=== PATIENT | female | born 1945 | race Caucasian/White ===

== ENCOUNTER 2018-12-10 18:29 | Emergency (ER) | payer OTHER ==
[2018-12-10] MEDS ORDERED: TETANUS & DIPHTHERIA TOX,ADULT 0.5 ML VIAL ONE (19:04)
[2018-12-10] MEDS ORDERED: WATER FOR INJ,STERILE 10 ML ONE (19:04)
[2018-12-10] MEDS ORDERED: CEFAZOLIN SODIUM 1 GM/VIAL ONE (19:04)
[2018-12-10 19:09] LABS: Absolute Lymphocytes (CBC) 3.1 K/uL (0.7-4.9); Basophils % 0.6 % (0-1.3); Hematocrit 37.7 % (36.0-45.0); Lymphocytes % 36.7 % (15.3-44.8); MPV 7.8 fL (7.6-11.3); RBC Red Blood Cell Count 4.04 M/uL (3.86-4.86)
[2018-12-10 19:30] LABS: ALT/SGPT 25 U/L (12-78); AST/SGOT 22 U/L (15-37); Albumin 3.6 g/dL (3.4-5.0); Alkaline Phosphatase 69 U/L (45-117); BUN Blood Urea Nitrogen 15 mg/dL (7-18); Bicarbonate 28 mmol/L (21-32); Bilirubin Direct < 0.1 mg/dL (0-0.2); Bilirubin Total 0.2 mg/dL (0.2-1.0); Glucose Level 109 mg/dL (74-106); Potassium 3.7 mmol/L (3.5-5.1); Protein, Total 6.8 g/dL (6.4-8.2); Sodium Level 142 mmol/L (136-145)
[2018-12-10 19:34] LABS: Protime INR 1.03
--- NOTE | 2018-12-10 20:22 | EDPHYS ---
Physician Documentation [facility] Name: Shahrzad Roque Age: 73 yrs Sex: Female : 1945 Arrival Date: 12/10/2018 Time: 18:32 Bed 19 Private MD: ED Physician Gallito Tucker HPI: 12/10 18:52 This 73 yrs old Female presents to ER via Ambulatory with complaints of Snake snw bite. 18:52 The patient was bitten on the dorsal aspect of middle phalanx of left ring finger, by a snw snake, weeding. Onset: The symptoms/episode began/occurred suddenly, just prior to arrival. Animal information: The snake had the markings of a copperhead snake. Secondary to the bite the patient reports a puncture wound, that is small. Associated signs and symptoms: Pertinent positives: minimal edema. Severity of symptoms: At their worst the symptoms were mild. The patient has not experienced similar symptoms in the past. The patient has not recently seen a physician. Historical: - Allergies: 18:40 Erythromycin; ss - PSHx: 18:40 Cholecystectomy; ss - Immunization history:: Adult Immunizations up to date. - Social history:: Smoking status: Patient/guardian denies using tobacco. - Ebola Screening: : Patient denies exposure to infectious person Patient denies travel to an Ebola-affected area in the 21 days before illness onset. ROS: 18:51 Constitutional: Negative for fever, chills, and weight loss, Eyes: Negative for injury, snw pain, redness, and discharge, ENT: Negative for injury, pain, and discharge, Neck: Negative for injury, pain, and swelling, Cardiovascular: Negative for chest pain, palpitations, and edema, Respiratory: Negative for shortness of breath, cough, wheezing, and pleuritic chest pain, Abdomen/GI: Negative for abdominal pain, nausea, vomiting, diarrhea, and constipation, Back: Negative for injury and pain, : Negative for injury, bleeding, discharge, and swelling, Skin: Negative for injury, rash, and discoloration, Neuro: Negative for headache, weakness, numbness, tingling, and seizure, Psych: Negative for depression, anxiety, suicide ideation, homicidal ideation, and hallucinations. 18:51 MS/extremity: Positive for snakebite. Exam: 18:51 Constitutional: This is a well developed, well nourished patient who is awake, alert, snw and in no acute distress. Head/Face: Normocephalic, atraumatic. Eyes: Pupils equal round and reactive to light, extra-ocular motions intact. Lids and lashes normal. Conjunctiva and sclera are non-icteric and not injected. Cornea within normal limits. Periorbital areas with no swelling, redness, or edema. ENT: Nares patent. No nasal discharge, no septal abnormalities noted. Tympanic membranes are normal and external auditory canals are clear. Oropharynx with no redness, swelling, or masses, exudates, or evidence of obstruction, uvula midline. Mucous membranes moist. Neck: Trachea midline, no thyromegaly or masses palpated, and no cervical lymphadenopathy. Supple, full range of motion without nuchal rigidity, or vertebral point tenderness. No Meningismus. Chest/axilla: Normal chest wall appearance and motion. Nontender with no deformity. No lesions are appreciated. Cardiovascular: Regular rate and rhythm with a normal S1 and S2. No gallops, murmurs, or rubs. Normal PMI, no JVD. No pulse deficits. Respiratory: Lungs have equal breath sounds bilaterally, clear to auscultation and percussion. No rales, rhonchi or wheezes noted. No increased work of breathing, no retractions or nasal flaring. Abdomen/GI: Soft, non-tender, with normal bowel sounds. No distension or tympany. No guarding or rebound. No evidence of tenderness throughout. Back: No spinal tenderness. No costovertebral tenderness. Full range of motion. MS/ Extremity: Pulses equal, no cyanosis. Neurovascular intact. Full, normal range of motion. Neuro: Awake and alert, GCS 15, oriented to person, place, time, and situation. Cranial nerves II-XII grossly intact. Motor strength 5/5 in all extremities. Sensory grossly intact. Cerebellar exam normal. Normal gait. Psych: Awake, alert, with orientation to person, place and time. Behavior, mood, and affect are within normal limits. 18:51 Skin: Appearance: normal except for affected area, injury, puncture(s), that are superficial, of the dorsal aspect of middle phalanx of left ring finger, one puncture wound from copperhead while weeding with gloves on. Vital Signs: 18:38 BP 133 / 64; Pulse 84; Resp 16; Temp 98.4(TE); Pulse Ox 99% on R/A; Weight 40.82 kg; ss Height 5 ft. 0 in. (152.40 cm); Pain 0/10; 19:30 BP 141 / 85; Pulse 89; Resp 19; Temp 98.5; Pulse Ox 98% ; Pain 0/10; rr5 20:30 BP 133 / 75; Pulse 80; Resp 18; Temp 97.8; Pulse Ox 99% ; rr5 18:38 Body Mass Index 17.58 (40.82 kg, 152.40 cm) ss MDM: 18:41 Patient medically screened. snw 20:22 Data reviewed: vital signs, nurses notes. Data interpreted: Pulse oximetry: on room air snw is 99 %. Interpretation: normal. Counseling: I had a detailed discussion with the patient and/or guardian regarding: the historical points, exam findings, and any diagnostic results supporting the discharge/admit diagnosis, lab results, radiology results, the need for outpatient follow up, to return to the emergency department if symptoms worsen or persist or if there are any questions or concerns that arise at home. Special discussion: I discussed in detail with the patient the higher chance of wound infection based on his presenting history. Based on the history and exam findings, there is no indication for further emergent testing or inpatient evaluation. I discussed with the patient/guardian the need to see the primary care provider for further evaluation of the symptoms. 12/10 18:50 Order name: CBC with Diff; Complete Time: 19:28 snw 12/10 18:50 Order name: Chem 7; Complete Time: 19:36 snw 12/10 18:50 Order name: PT-INR; Complete Time: 19:36 snw 12/10 18:50 Order name: Ptt, Activated; Complete Time: 19:36 snw 12/10 18:50 Order name: Fibrinogen; Complete Time: 19:36 snw 12/10 18:50 Order name: LFT's; Complete Time: 19:36 snw 12/10 18:50 Order name: Hand Left 2 View XRAY snw Administered Medications: 19:15 Drug: Tetanus-Diphtheria Toxoid Adult 0.5 ml {Set Up Operator: [employer]. Exp: rr5 07/21/2020. Lot #: [id number]. } Route: IM; Site: left deltoid; 20:15 Follow up: Response: No adverse reaction rr5 19:17 Drug: Ancef 1 grams Route: IM; Site: left gluteus; rr5 20:20 Follow up: Response: No adverse reaction rr5 Disposition: 12/11 06:46 Co-signature as Attending Physician, Gallito Tucker MD I agree with the assessment and prateek plan of care. Disposition: 12/10/18 20:21 Discharged to Home. Impression: Bitten by venomous snake - copperhead. - Condition is Stable. - Discharge Instructions: Snake Bite, Puncture Wound, VIS, Tetanus, Diphtheria (Td) - [facility]. - Prescriptions for Augmentin 875- 125 mg Oral Tablet - take 1 tablet by ORAL route every 12 hours for 10 days; 20 tablet. Mobic 7.5 mg Oral Tablet - take 1 tablet by ORAL route once daily take with food; 20 tablet. - Medication Reconciliation Form, Thank You Letter, Antibiotic Education, Prescription Opioid Use form. - Follow up: Private Physician; When: 2 - 3 days; Reason: Recheck today's complaints, Continuance of care, Re-evaluation by your physician. Follow up: Emergency Department; When: As needed; Reason: Worsening of condition. Signatures: Dispatcher [employer] EDMS Gallito Tucker MD MD cha Therrien, Shelly, MANAGER CREDIT COLLECTIONS-C MANAGER CREDIT COLLECTIONS-Aprilw Ángela Wilhelm RN RN Sujit Justice RN RN jl7 Eric Rogers RN RN rr5 Corrections: (The following items were deleted from the chart) 12/10 20:38 20:21 12/10/2018 20:21 Discharged to Home. Impression: Bitten by venomous snake - rr5 copperhead. Condition is Stable. Forms are Medication Reconciliation Form, Thank You Letter, Antibiotic Education, Prescription Opioid Use. Follow up: Private Physician; When: 2 - 3 days; Reason: Recheck today's complaints, Continuance of care, Re-evaluation by your physician. Follow up: Emergency Department; When: As needed; Reason: Worsening of condition. snw
--- NOTE | 2018-12-10 20:22 | ER ---
Nurse's Notes [facility] Name: Shahrzad Roque Age: 73 yrs Sex: Female : 1945 Arrival Date: 12/10/2018 Time: 18:32 Bed 19 Private MD: Diagnosis: Bitten by venomous snake - copperhead Presentation: 12/10 18:38 Presenting complaint: Patient states: Bit by a snake to L third finger at 1745. Patient ss reports she was wearing gloves when accident occurred. states that snake was a copperhead. Patient denies pain. Very minimal swelling noted to L third finger with one small puncture wound. Transition of care: patient was not received from another setting of care. Onset of symptoms was December 10, 2018. Risk Assessment: Do you want to hurt yourself or someone else? Patient reports no desire to harm self or others. Initial Sepsis Screen: Does the patient meet any 2 criteria? No. Patient's initial sepsis screen is negative. Does the patient have a suspected source of infection? No. Patient's initial sepsis screen is negative. Care prior to arrival: None. 18:38 Method Of Arrival: Ambulatory ss 18:38 Acuity: KELLIE 2 ss Triage Assessment: 19:00 Bite description: bite sustained to dorsal aspect of middle phalanx of left middle rr5 finger is superficial punctured wound by a snake, animal information: vaccination(s) is unknown. Historical: - Allergies: 18:40 Erythromycin; ss - PSHx: 18:40 Cholecystectomy; ss - Immunization history:: Adult Immunizations up to date. - Social history:: Smoking status: Patient/guardian denies using tobacco. - Ebola Screening: : Patient denies exposure to infectious person Patient denies travel to an Ebola-affected area in the 21 days before illness onset. Screenin:09 Abuse screen: Denies threats or abuse. Denies injuries from another. Nutritional rr5 screening: No deficits noted. Tuberculosis screening: No symptoms or risk factors identified. Fall Risk IV access (20 points). Total Cornejo Fall Scale indicates No Risk (0-24 pts). Assessment: 19:00 General: Appears in no apparent distress. comfortable, Behavior is calm, cooperative, rr5 appropriate for age. 19:00 Pain: Denies pain. Neuro: Level of Consciousness is awake, alert, obeys commands, rr5 Oriented to person, place, time, situation, Appropriate for age. Cardiovascular: Capillary refill < 3 seconds Patient's skin is warm and dry. Respiratory: Airway is patent Respiratory effort is even, unlabored, Respiratory pattern is regular, symmetrical. GI: No signs and/or symptoms were reported involving the gastrointestinal system. : No signs and/or symptoms were reported regarding the genitourinary system. EENT: No signs and/or symptoms were reported regarding the EENT system. Derm: Skin is intact, Skin is pink, warm \T\ dry. mild swelling and superficial punctured jagruti at left middle finger noted and marked. Musculoskeletal: Circulation, motion, and sensation intact. Capillary refill < 3 seconds. 20:00 Reassessment: left middle finger checked every 15 minutes and marked the time. no rr5 progression of swelling noted. 20:08 Reassessment: Patient appears in no apparent distress at this time. Patient and/or rr5 family updated on plan of care and expected duration. Pain level reassessed. Patient is alert, oriented x 3, equal unlabored respirations, skin warm/dry/pink. awaiting for review. no complaints made. 20:37 Reassessment: Patient appears in no apparent distress at this time. Patient is alert, rr5 oriented x 3, equal unlabored respirations, skin warm/dry/pink. discharge instruction given and explained without complaints made, verbalized understanding. Patient states feeling better. Patient states symptoms have improved. Vital Signs: 18:38 BP 133 / 64; Pulse 84; Resp 16; Temp 98.4(TE); Pulse Ox 99% on R/A; Weight 40.82 kg; Height 5 ft. 0 in. (152.40 cm); Pain 0/10; 19:30 BP 141 / 85; Pulse 89; Resp 19; Temp 98.5; Pulse Ox 98% ; Pain 0/10; rr5 20:30 BP 133 / 75; Pulse 80; Resp 18; Temp 97.8; Pulse Ox 99% ; rr5 18:38 Body Mass Index 17.58 (40.82 kg, 152.40 cm) ED Course: 18:32 Patient arrived in ED. mr 18:40 Triage completed. ss 18:40 Arm band placed on right wrist. ss 18:41 Char Khan FNP-C is PHCP. snw 18:41 Gallito Tucker MD is Attending Physician. snw 18:51 Sujit Conner, RN is Primary Nurse. jl7 18:55 Inserted saline lock: 22 gauge in right antecubital area, using aseptic technique. ss Blood collected. 19:00 Bed in low position. Call light in reach. Side rails up X2. analysis director on. Pulse rr5 ox on. NIBP on. 19:12 Hand Left 2 View XRAY In Process Unspecified. EDMS 20:37 No provider procedures requiring assistance completed. IV discontinued, intact, rr5 bleeding controlled, No redness/swelling at site. Pressure dressing applied. Administered Medications: 19:15 Drug: Tetanus-Diphtheria Toxoid Adult 0.5 ml {Tile Picker: [employer]. Exp: rr5 07/21/2020. Lot #: [id number]. } Route: IM; Site: left deltoid; 20:15 Follow up: Response: No adverse reaction rr5 19:17 Drug: Ancef 1 grams Route: IM; Site: left gluteus; rr5 20:20 Follow up: Response: No adverse reaction rr5 Outcome: 20:21 Discharge ordered by . snw 20:37 Discharged to home ambulatory, with family. rr5 20:37 Condition: stable 20:37 Discharge instructions given to patient, Instructed on discharge instructions, follow up and referral plans. medication usage, Demonstrated understanding of instructions, follow-up care, medications, Prescriptions given X 2. 20:38 Patient left the ED. rr5 Signatures: Dispatcher [employer] EDCO Char Khan, PROCESS TREATER-C PROCESS TREATER-Bailey Cory Ángela Chang, RN RN Sujit Justice, RN RN jl7 Eric Rogers, RN RN rr5
[2018-12-10 21:16] VITALS: BP 133/75; TEMP 97.8; O2SAT 99
--- NOTE | 2018-12-12 15:09 | RAD REPORT ---
EXAM DESCRIPTION: RAD - Hand Left 2 View - 12/11/2018 7:04 pm CLINICAL HISTORY: Left hand pain FINDINGS: No fracture or dislocation is seen. Soft tissue swelling third digit. No bony destructive lesion
== END 2018-12-10 20:38 | disposition home or self-care (01) ==
LOC: ER 18:29
DX: S61.235A Puncture wound without foreign body of left ring finger without damage to nail, initial encounter (principal); T63.091A Toxic effect of venom of other snake, accidental (unintentional), initial encounter; Y92.9 Unspecified place or not applicable; Z23 Encounter for immunization; Z88.3 Allergy status to other anti-infective agents
CPT/HCPCS: 85025; 80048; 36415; 85384; 85610; 80076; 85730; 73120; 90471; 90714; 96372; 99284; J0690

== ENCOUNTER 2020-04-28 09:38 | Emergency (ER) | payer OTHER ==
--- NOTE | 2020-04-28 10:56 | ER ---
Nurse's Notes [facility] Name: Shahrzad Roque Age: 74 yrs Sex: Female : 1945 Arrival Date: 04/28/2020 Time: 09:39 Bed 17 Private MD: Fede Alexander V Diagnosis: Urinary tract infection, site not specified;Dysuria Presentation: 04/28 09:52 Chief complaint: Patient states: burning with urination and hematuria since yesterday. aa5 09:52 Coronavirus screen: Client denies travel out of the [place] in the last 14 days. At this aa5 time, the client does not indicate any symptoms associated with coronavirus-19. Ebola Screen: Patient negative for fever greater than or equal to 101.5 degrees Fahrenheit, and additional compatible Ebola Virus Disease symptoms. Initial Sepsis Screen: Does the patient meet any 2 criteria? No. Patient's initial sepsis screen is negative. Does the patient have a suspected source of infection? No. Patient's initial sepsis screen is negative. Risk Assessment: Do you want to hurt yourself or someone else? Patient reports no desire to harm self or others. Onset of symptoms was April 27, 2020. 09:52 Method Of Arrival: Ambulatory aa5 09:52 Acuity: KELLIE 4 aa5 Triage Assessment: 11:00 General: Appears in no apparent distress. Behavior is calm, cooperative. Pain: Denies iw pain. : Reports burning with urination. Derm: No signs and/or symptoms reported regarding the dermatologic system. Skin is intact, is healthy with good turgor. Historical: - Allergies: 15:51 Erythromycin; iw - Immunization history:: Adult Immunizations unknown. - Social history:: Smoking status: unknown. Screenin:00 Abuse screen: Denies threats or abuse. Denies injuries from another. Nutritional iw screening: No deficits noted. Tuberculosis screening: No symptoms or risk factors identified. Fall Risk None identified. Assessment: 11:30 Reassessment: Patient is alert, oriented x 3, equal unlabored respirations, skin aa5 warm/dry/pink. Vital Signs: 09:52 BP 106 / 47; Pulse 82; Resp 16 S; Temp 98.5(O); Pulse Ox 99% on R/A; Weight 40.82 kg aa5 (R); Height 5 ft. 0 in. (152.40 cm) (R); Pain 0/10; 09:52 Body Mass Index 17.58 (40.82 kg, 152.40 cm) aa5 ED Course: 09:39 Patient arrived in ED. ag5 09:39 Fede Alexander MD is Private Physician. ag5 09:44 Mina Chaidez MD is Attending Physician. kdr 09:52 Arm band placed on Patient placed in an exam room, on a stretcher. aa5 10:05 Triage completed. aa5 10:34 Janis Ames, RN is Primary Nurse. iw 10:55 Fede Alexander MD is Referral Physician. kdr 11:30 No provider procedures requiring assistance completed. Patient did not have IV access iw during this emergency room visit. Administered Medications: 11:31 Drug: Bactrim (160 mg-800 mg (DS) 1 tablet Route: PO; aa5 11:31 Follow up: Response: Medication administered at discharge. aa5 11:31 Not Given (Pt reports she took 2 AZOs this morning. ): Pyridium 200 mg PO once aa5 Outcome: 10:56 Discharge ordered by . kdr 11:30 Discharged to home ambulatory. aa5 11:30 Condition: good 11:30 Discharge instructions given to patient, Instructed on discharge instructions, follow up and referral plans. medication usage, Demonstrated understanding of instructions, follow-up care, medications, Prescriptions given X 2. 11:31 Patient left the ED. aa5 Signatures: Mina Chaidez MD MD kdr Janis Ames RN RN Anai Sinclair RN RN aa5 Lsia Roberts ag5
--- NOTE | 2020-04-28 10:56 | EDPHYS ---
Physician Documentation [facility] Name: Shahrzad Roque Age: 74 yrs Sex: Female : 1945 Arrival Date: 04/28/2020 Time: 09:39 Bed 17 Private MD: Fede Alexander V ED Physician Mina Chaidez HPI: 04/28 11:04 This 74 yrs old Female presents to ER via Ambulatory with complaints of UTI. kdr 11:04 The patient presents with urinary symptoms, dysuria, frequency, hematuria, urgency. kdr Onset: The symptoms/episode began/occurred suddenly, at an unknown time. Modifying factors: The symptoms are alleviated by nothing, the symptoms are aggravated by urinating. Associated signs and symptoms: The patient has no apparent associated signs or symptoms. Severity of symptoms: At their worst the symptoms were mild, in the emergency department the symptoms are unchanged. The patient is not sexually active. The patient has experienced similar episodes in the past, a few times, with the last episode occurring 2 year(s) ago. The patient has not recently seen a physician. Historical: - Allergies: 15:51 Erythromycin; iw - Immunization history:: Adult Immunizations unknown. - Social history:: Smoking status: unknown. ROS: 11:04 Constitutional: Negative for fever, chills, and weight loss, Eyes: Negative for injury, kdr pain, redness, and discharge, Neck: Negative for injury, pain, and swelling, Cardiovascular: Negative for chest pain, palpitations, and edema, Respiratory: Negative for shortness of breath, cough, wheezing, and pleuritic chest pain, Abdomen/GI: Negative for abdominal pain, nausea, vomiting, diarrhea, and constipation, Back: Negative for injury and pain, MS/Extremity: Negative for injury and deformity, Skin: Negative for injury, rash, and discoloration, Neuro: Negative for headache, weakness, numbness, tingling, and seizure activity. Psych: Negative for depression, anxiety, suicide ideation, homicidal ideation, and hallucinations, Allergy/Immunology: Negative for hives, rash, and allergies, Endocrine: Negative for neck swelling, polydipsia, polyuria, polyphagia, and marked weight changes, Hematologic/Lymphatic: Negative for swollen nodes, abnormal bleeding, and unusual bruising. Exam: 11:04 Constitutional: This is a well developed, well nourished patient who is awake, alert, kdr and in no acute distress. Head/Face: Normocephalic, atraumatic. Eyes: Pupils equal round and reactive to light, extra-ocular motions intact. Lids and lashes normal. Conjunctiva and sclera are non-icteric and not injected. Cornea within normal limits. Periorbital areas with no swelling, redness, or edema. Neck: Trachea midline, no thyromegaly or masses palpated, and no cervical lymphadenopathy. Supple, full range of motion without nuchal rigidity, or vertebral point tenderness. No Meningismus. Chest/axilla: Normal chest wall appearance and motion. Nontender with no deformity. No lesions are appreciated. Cardiovascular: Regular rate and rhythm with a normal S1 and S2. No gallops, murmurs, or rubs. Normal PMI, no JVD. No pulse deficits. Respiratory: Lungs have equal breath sounds bilaterally, clear to auscultation and percussion. No rales, rhonchi or wheezes noted. No increased work of breathing, no retractions or nasal flaring. Abdomen/GI: Soft, non-tender, with normal bowel sounds. No distension or tympany. No guarding or rebound. No evidence of tenderness throughout. Back: No spinal tenderness. No costovertebral tenderness. Full range of motion. Skin: Warm, dry with normal turgor. Normal color with no rashes, no lesions, and no evidence of cellulitis. MS/ Extremity: Pulses equal, no cyanosis. Neurovascular intact. Full, normal range of motion. Neuro: Awake and alert, GCS 15, oriented to person, place, time, and situation. Cranial nerves II-XII grossly intact. Motor strength 5/5 in all extremities. Sensory grossly intact. Cerebellar exam normal. Normal gait. Psych: Awake, alert, with orientation to person, place and time. Behavior, mood, and affect are within normal limits. Vital Signs: 09:52 BP 106 / 47; Pulse 82; Resp 16 S; Temp 98.5(O); Pulse Ox 99% on R/A; Weight 40.82 kg aa5 (R); Height 5 ft. 0 in. (152.40 cm) (R); Pain 0/10; 09:52 Body Mass Index 17.58 (40.82 kg, 152.40 cm) aa5 MDM: 10:56 Patient medically screened. kdr 11:04 Data reviewed: vital signs, nurses notes. Counseling: I had a detailed discussion with kdr the patient and/or guardian regarding: the historical points, exam findings, and any diagnostic results supporting the discharge/admit diagnosis, lab results, the need for outpatient follow up. 04/28 10:55 Order name: Urine Dipstick--Ancillary (enter results) eb 04/28 09:55 Order name: Urine Dipstick-Ancillary (obtain specimen); Complete Time: 10:54 kdr Administered Medications: 11:31 Drug: Bactrim (160 mg-800 mg (DS) 1 tablet Route: PO; aa5 11:31 Follow up: Response: Medication administered at discharge. aa5 11:31 Not Given (Pt reports she took 2 AZOs this morning. ): Pyridium 200 mg PO once aa5 Disposition: 04/28/20 10:56 Discharged to Home. Impression: Urinary tract infection, site not specified, Dysuria. - Condition is Stable. - Discharge Instructions: Dysuria, Urinary Tract Infection, Adult, [id number]. - Prescriptions for Pyridium 200 mg Oral Tablet - take 1 tablet by ORAL route every 8 hours for 3 days; 9 tablet. Bactrim DS 800- 160 mg Oral Tablet - take 1 tablet by ORAL route every 12 hours for 7 days; 14 tablet. - Medication Reconciliation Form, Thank You Letter, Antibiotic Education form. - Follow up: Fede Alexander MD; When: 2 - 3 days; Reason: If symptoms return, Further diagnostic work-up, Recheck today's complaints, Continuance of care, Re-evaluation by your physician. - Problem is new. - Symptoms have improved. Signatures: Dispatcher [employer] EDMO Mina Chaidez MD MD kdr Janis Ames RN RN iw Anai Sinclair, FOZIA RN aa5 Corrections: (The following items were deleted from the chart) 11:31 10:56 04/28/2020 10:56 Discharged to Home. Impression: Urinary tract infection, site aa5 not specified; Dysuria. Condition is Stable. Forms are Medication Reconciliation Form, Thank You Letter, Antibiotic Education, Prescription Opioid Use. Follow up: Fede Alexander; When: 2 - 3 days; Reason: If symptoms return, Further diagnostic work-up, Recheck today's complaints, Continuance of care, Re-evaluation by your physician. Problem is new. Symptoms have improved. kdr
[2020-04-28 11:02] LABS: Urine Blood 3+ (NEG); Urine Glucose NEGATIVE (NEG); Urine Protein TRACE (NEG)
[2020-04-28] MEDS ORDERED: PHENAZOPYRIDINE 100MG TAB PO ONE (11:29)
[2020-04-28] MEDS ORDERED: SMZ./TMP. 800/160 MG TABLET ONE (11:29)
[2020-04-28 11:36] VITALS: BP 106/47; TEMP 98.5; O2SAT 99
== END 2020-04-28 11:31 | disposition home or self-care (01) ==
LOC: ER 09:38
DX: N39.0 Urinary tract infection, site not specified (principal); Z88.3 Allergy status to other anti-infective agents
CPT/HCPCS: 81003; 99283

== ENCOUNTER 2020-05-13 20:24 | Observation (INO) | payer OTHER ==
[2020-05-13] MEDS ORDERED: ACETAMINOPHEN 325 MG TABLET ONE (21:35)
[2020-05-13 22:27] LABS: Absolute Lymphocytes (CBC) 1.6 K/uL (0.7-4.9); Basophils % 0.5 % (0-1.3); Hematocrit 30.5 % (36.0-45.0); Lymphocytes % 13.4 % (15.3-44.8); RBC Red Blood Cell Count 3.31 M/uL (3.86-4.86)
[2020-05-13 22:38] LABS: Protime INR 1.13
[2020-05-13 22:49] LABS: ALT/SGPT 21 U/L (12-78); AST/SGOT 21 U/L (15-37); Albumin 3.1 g/dL (3.4-5.0); Alkaline Phosphatase 70 U/L (45-117); BUN Blood Urea Nitrogen 19 mg/dL (7-18); Bicarbonate 25 mmol/L (21-32); Bilirubin Direct < 0.1 mg/dL (0-0.2); Bilirubin Total 0.2 mg/dL (0.2-1.0); Glucose Level 103 mg/dL (74-106); Magnesium 1.9 mg/dL (1.8-2.4); NT PRO-BNP 90 pg/mL (<125); Potassium 3.8 mmol/L (3.5-5.1); Protein, Total 6.8 g/dL (6.4-8.2); Sodium Level 139 mmol/L (136-145); Troponin (Emerg Dept Use Only) < 0.02 ng/mL (0.0-0.045)
[2020-05-14 01:31] LABS: Urine Blood NEGATIVE (NEG); Urine Glucose NEGATIVE (NEG); Urine Protein NEGATIVE (NEG); Urine pH 7.5 (5.0-7.0)
[2020-05-14 01:57] LABS: SARS-COV-2 RT PCR NEGATIVE (NEGATIVE)
--- NOTE | 2020-05-14 03:26 | EDPHYS ---
Physician Documentation [facility] Name: Shahrzad Roque Age: 74 yrs Sex: Female : 1945 Arrival Date: 05/13/2020 Time: 20:34 Bed 17 Private MD: ED Physician Allan Corado HPI: 05/13 22:40 This 74 yrs old Female presents to ER via Ambulatory with complaints of Chest mh7 Pain. 22:40 The patient or guardian reports chest pain that is located primarily in the anterior mh7 chest wall, right. Onset: today. The pain does not radiate. Associated signs and symptoms: Pertinent positives: shortness of breath, Fever, Pertinent negatives: abdominal pain, cough, diaphoresis, dizziness, headache, lower extremity pain, lower extremity swelling, lightheadedness, nausea, near syncope, palpitations, recent travel, syncope, vomiting. The chest pain is described as sharp. Duration: The patient or guardian reports multiple episodes, that are intermittent, that wax and wane. Modifying factors: The symptoms are alleviated by nothing. the symptoms are aggravated by deep breath. Severity of pain: At its worst the pain was moderate today, in the emergency department the pain has improved moderately. Historical: - Allergies: 20:46 Erythromycin; ca1 - Home Meds: 20:46 gabapentin Oral [Active]; Simvastatin Oral [Active]; ca1 - PMHx: 20:46 High Cholesterol; ca1 - PSHx: 20:46 Cholecystectomy; ca1 - Immunization history:: Client reports having NOT received the Covid vaccine. Pneumococcal vaccine is not up to date, Flu vaccine is not up to date. - Social history:: Smoking status: Patient denies any tobacco usage or history of. ROS: 22:40 Eyes: Negative for injury, pain, redness, and discharge, ENT: Negative for injury, mh7 pain, and discharge, Neck: Negative for injury, pain, and swelling, Abdomen/GI: Negative for abdominal pain, nausea, vomiting, diarrhea, and constipation, Back: Negative for injury and pain, : Negative for injury, bleeding, discharge, and swelling, MS/Extremity: Negative for injury and deformity, Skin: Negative for injury, rash, and discoloration, Neuro: Negative for headache, weakness, numbness, tingling, and seizure, Psych: Negative for depression, anxiety, suicide ideation, homicidal ideation, and hallucinations, Allergy/Immunology: Negative for hives, rash, and allergies, Endocrine: Negative for neck swelling, polydipsia, polyuria, polyphagia, and marked weight changes, Hematologic/Lymphatic: Negative for swollen nodes, abnormal bleeding, and unusual bruising. Exam: 22:40 Constitutional: This is a well developed, well nourished patient who is awake, alert, mh7 and in no acute distress. Head/Face: Normocephalic, atraumatic. Eyes: Pupils equal round and reactive to light, extra-ocular motions intact. Lids and lashes normal. Conjunctiva and sclera are non-icteric and not injected. Cornea within normal limits. Periorbital areas with no swelling, redness, or edema. Neck: Trachea midline, no thyromegaly or masses palpated, and no cervical lymphadenopathy. Supple, full range of motion without nuchal rigidity, or vertebral point tenderness. No Meningismus. 22:40 Cardiovascular: Regular rate and rhythm with a normal S1 and S2. No gallops, murmurs, or rubs. Normal PMI, no JVD. No pulse deficits. Respiratory: Lungs have equal breath sounds bilaterally, clear to auscultation and percussion. No rales, rhonchi or wheezes noted. No increased work of breathing, no retractions or nasal flaring. Abdomen/GI: Soft, non-tender, with normal bowel sounds. No distension or tympany. No guarding or rebound. No evidence of tenderness throughout. Back: No spinal tenderness. No costovertebral tenderness. Full range of motion. Skin: Warm, dry with normal turgor. Normal color with no rashes, no lesions, and no evidence of cellulitis. MS/ Extremity: Pulses equal, no cyanosis. Neurovascular intact. Full, normal range of motion. Neuro: Awake and alert, GCS 15, oriented to person, place, time, and situation. Cranial nerves II-XII grossly intact. Motor strength 5/5 in all extremities. Sensory grossly intact. Cerebellar exam normal. Normal gait. Psych: Awake, alert, with orientation to person, place and time. Behavior, mood, and affect are within normal limits. 22:40 Chest/axilla: Inspection: normal, Palpation: tenderness, that is mild, of the anterior aspect of right upper chest, that partially reproduces the patient's complaints. Vital Signs: 20:43 BP 130 / 64; Pulse 101; Resp 18 S; Temp 100.4(O); Pulse Ox 98% on R/A; Weight 40.82 kg ca1 (R); Height 5 ft. 0 in. (152.40 cm) (R); Pain 2/10; 21:30 BP 121 / 59; Pulse 80; Resp 18; Pulse Ox 97% on R/A; ll2 22:30 BP 119 / 58; Pulse 84; Resp 20; Pulse Ox 98% on R/A; ll2 23:44 BP 117 / 71; Pulse 87; Resp 20; Pulse Ox 99% on R/A; ll2 05/14 00:45 BP 120 / 85; Pulse 87; Resp 18; Pulse Ox 100% on R/A; ll2 01:45 BP 102 / 52; Pulse 85; Resp 20; Pulse Ox 99% on R/A; ll2 02:45 BP 113 / 60; Pulse 78; Resp 16; Pulse Ox 97% on R/A; ll2 03:45 BP 111 / 61; Pulse 88; Resp 20; Pulse Ox 99% on R/A; ll2 05/13 20:43 Body Mass Index 17.58 (40.82 kg, 152.40 cm) ca1 MDM: 03:23 Differential diagnosis: acute myocardial infarction, acute pericarditis, anxiety, mh7 coronary artery disease chest wall pain, congestive heart failure costochondritis, myocarditis, pulmonary embolus. HEART Score: History: Moderately Suspicious (1), ECG: Normal (0), Age: > or = 65 years (2), Risk Factors: 1 or 2 risk factors (1), [Hypercholesterolemia] Troponin: < or = 1 x Normal Limit (0), Total Score = 4. 03:24 Data reviewed: vital signs, nurses notes, lab test result(s), cardiac enzymes, CBC, 7 electrolytes, urinalysis, EKG, radiologic studies, CT scan, plain films. Data interpreted: Pulse oximetry: on room air is 99 %. Interpretation: normal. Counseling: I had a detailed discussion with the patient and/or guardian regarding: the historical points, exam findings, and any diagnostic results supporting the discharge/admit diagnosis, lab results, radiology results, the need for further work-up and treatment in the hospital. 03:25 Patient medically screened. mh7 05/13 21:47 Order name: Basic Metabolic Panel [facility] 05/13 21:47 Order name: CBC with Diff [facility] 05/13 21:47 Order name: LFT's [facility] 05/13 21:47 Order name: Magnesium [facility] 05/13 21:47 Order name: NT PRO-BNP [facility] 05/13 21:47 Order name: PT-INR [facility] 05/13 21:47 Order name: Troponin (emerg Dept Use Only); Complete Time: 00:23 [facility] 05/13 21:48 Order name: Blood Culture Adult (2) [facility] 05/13 21:48 Order name: Basic Metabolic Panel; Complete Time: 00:23 EDMS 05/13 21:48 Order name: CBC with Automated Diff; Complete Time: 22:59 EDMS 05/13 21:48 Order name: Liver (Hepatic) Function; Complete Time: 00:23 EDMS 05/13 21:48 Order name: Magnesium; Complete Time: 00:23 EDMS 05/13 21:48 Order name: NT PRO-BNP; Complete Time: 00:23 EDMS 05/13 21:48 Order name: Protime (+INR); Complete Time: 00:23 EDMS 05/14 00:50 Order name: Lactate [facility] 05/14 00:50 Order name: Procalcitonin [facility] 05/14 00:51 Order name: Lactate; Complete Time: 02:22 EDMS 05/14 00:51 Order name: Procalcitonin; Complete Time: 03:20 EDMS 05/14 01:14 Order name: Urine Dipstick--Ancillary (enter results); Complete Time: 02:22 tt3 05/14 01:58 Order name: COVID-19/FLU A+B; Complete Time: 02:22 EDMS 05/14 02:23 Order name: Urine Culture [facility] 05/14 04:09 Order name: Basic Metabolic Panel EDMS 05/14 04:09 Order name: Basic Metabolic Panel EDMS 05/14 04:09 Order name: CBC with Automated Diff EDMS 05/14 04:09 Order name: CBC with Automated Diff EDMS 05/14 04:09 Order name: Troponin I EDMS 05/14 04:09 Order name: Troponin I EDMS 05/14 04:09 Order name: Troponin I EDMS 05/13 21:15 Order name: EKG; Complete Time: 21:16 [facility] 05/13 21:15 Order name: EKG - Nurse/Tech; Complete Time: 21:15 [facility] 05/13 21:47 Order name: XRAY Chest (1 view) [facility] 05/13 21:47 Order name: Cardiac monitoring; Complete Time: 23:40 [facility] 05/13 21:47 Order name: IV Saline Lock; Complete Time: 22:13 [facility] 05/13 21:47 Order name: Labs collected and sent; Complete Time: 22:13 [facility] 05/13 21:47 Order name: O2 Per Protocol; Complete Time: 22:13 [facility] 05/13 21:47 Order name: O2 Sat Monitoring; Complete Time: 22:13 [facility] 05/13 21:48 Order name: Urine Dipstick-Ancillary (obtain specimen); Complete Time: 23:40 [facility] 05/14 00:50 Order name: CT Chest For PE Angio [facility] 05/14 04:09 Order name: Consistent Carb (ADA) [address] [facility] 05/14 04:09 Order name: EKG Electrocardiogram [facility] 05/14 04:09 Order name: EKG Electrocardiogram [facility] 05/14 04:09 Order name: EKG Electrocardiogram [facility] 05/14 04:09 Order name: EKG Electrocardiogram EDIL Administered Medications: 05/13 21:18 Drug: Tylenol 650 mg Route: PO; [facility] 05/14 03:37 Drug: Rocephin - (cefTRIAXone) 1 grams Route: IVPB; Infused Over: 30 mins; Site: right ll2 antecubital; 03:37 Drug: Aspirin Chewable Tablet 162 mg Route: PO; ll2 Disposition: 05/14/20 03:25 Hospitalization ordered by Fede Alexander for Observation. Preliminary diagnosis is Chest pain, unspecified. - Bed requested for Telemetry/MedSurg (observation). - Status is Observation. ll2 - Condition is Stable. - Problem is new. - Symptoms have improved. Signatures: Dispatcher [employer] EDMS Chester Patel, JAYNE-C SHELF FILLER-Cla1 Kezia Mendosa, RN RN cg Shahrzad Coppola RN RN ca1 Serina Stoner RN RN ll2 Allan Corado MD MD 7 Corrections: (The following items were deleted from the chart) 01:15 00:29 Influenza Screen (A \T\ B)+BA.LAB.BRZ ordered. EDMS EDMS 01:15 00:29 CORONAVIRUS+MR.LAB.BRZ ordered. EDMS EDMS 04:01 03:25 Hospitalization Ordered by Fede Alexander MD for Observation. Preliminary diagnosis cg is Chest pain, unspecified. Bed requested for Telemetry/MedSurg (observation). Status is Observation. Condition is Stable. Problem is new. Symptoms have improved. mh7 04:37 04:01 05/14/2020 03:25 Hospitalization Ordered by Fede Alexander MD for Observation. ll2 Preliminary diagnosis is Chest pain, unspecified. Bed requested for Telemetry/MedSurg (observation). Status is Observation. Condition is Stable. Problem is new. Symptoms have improved. cg
--- NOTE | 2020-05-14 03:26 | ER ---
Nurse's Notes [facility] Name: Shahrzad Roque Age: 74 yrs Sex: Female : 1945 Arrival Date: 05/13/2020 Time: 20:34 Bed 17 Private MD: Diagnosis: Chest pain, unspecified Presentation: 05/13 20:43 Chief complaint: Patient states: It was at around 1500, It felt like pleurisy cause I ca1 had 1 before. Pain is more on the R side. When I was going home, I started having a fever and the chest pain has increased. Denies cough. Coronavirus screen: Client denies travel out of the [place] in the last 14 days. fever, Client presents with at least one sign or symptom that may indicate coronavirus-19. Standard/surgical mask placed on the client. Provider contacted for isolation considerations. Ebola Screen: Patient negative for fever greater than or equal to 101.5 degrees Fahrenheit, and additional compatible Ebola Virus Disease symptoms Patient denies exposure to infectious person. Patient denies travel to an Ebola-affected area in the 21 days before illness onset. No symptoms or risks identified at this time. Initial Sepsis Screen: Does the patient meet any 2 criteria? No. Patient's initial sepsis screen is negative. Does the patient have a suspected source of infection? No. Patient's initial sepsis screen is negative. Risk Assessment: Do you want to hurt yourself or someone else? Patient reports no desire to harm self or others. Onset of symptoms was May 13, 2020 at 15:00. 20:43 Method Of Arrival: Ambulatory ca1 20:43 Acuity: KELLIE 3 ca1 Historical: - Allergies: 20:46 Erythromycin; ca1 - Home Meds: 20:46 gabapentin Oral [Active]; Simvastatin Oral [Active]; ca1 - PMHx: 20:46 High Cholesterol; ca1 - PSHx: 20:46 Cholecystectomy; ca1 - Immunization history:: Client reports having NOT received the Covid vaccine. Pneumococcal vaccine is not up to date, Flu vaccine is not up to date. - Social history:: Smoking status: Patient denies any tobacco usage or history of. Screenin:20 Abuse screen: Denies threats or abuse. Nutritional screening: No deficits noted. ll2 Tuberculosis screening: No symptoms or risk factors identified. Fall Risk None identified. Assessment: 22:15 General: Appears in no apparent distress. Behavior is calm, cooperative, appropriate ll2 for age. Pain: Complains of pain in chest. Neuro: Level of Consciousness is awake, alert, obeys commands, Oriented to person, place, time, situation. Cardiovascular: Patient's skin is warm and dry. Respiratory: Airway is patent Respiratory effort is even, unlabored, Respiratory pattern is regular, symmetrical. GI: No signs and/or symptoms were reported involving the gastrointestinal system. : No signs and/or symptoms were reported regarding the genitourinary system. EENT: No signs and/or symptoms were reported regarding the EENT system. Derm: Skin is intact, is thin, Skin is pink, warm \T\ dry. Musculoskeletal: Circulation, motion, and sensation intact. Range of motion: intact in all extremities. 23:45 Reassessment: Patient and/or family updated on plan of care and expected duration. Pain ll2 level reassessed. Patient is alert, oriented x 3, equal unlabored respirations, skin warm/dry/pink. 05/14 00:45 Reassessment: Patient and/or family updated on plan of care and expected duration. Pain ll2 level reassessed. Patient is alert, oriented x 3, equal unlabored respirations, skin warm/dry/pink. 00:45 Reassessment: Patient and/or family updated on plan of care and expected duration. Pain ll2 level reassessed. Patient is alert, oriented x 3, equal unlabored respirations, skin warm/dry/pink. 01:45 Reassessment: Patient and/or family updated on plan of care and expected duration. Pain ll2 level reassessed. Patient is alert, oriented x 3, equal unlabored respirations, skin warm/dry/pink. 02:53 Reassessment: Patient and/or family updated on plan of care and expected duration. Pain ll2 level reassessed. Patient is alert, oriented x 3, equal unlabored respirations, skin warm/dry/pink. 03:50 Reassessment: Patient and/or family updated on plan of care and expected duration. Pain ll2 level reassessed. Patient is alert, oriented x 3, equal unlabored respirations, skin warm/dry/pink. 04:32 Reassessment: ATTEMPTED TO CALL REPORT, INSTRUCTED I'D BE CALLED BACK BY TATYANA MARCELO. ll2 04:35 Reassessment: REPORT GIVEN TO TATYANA MARCELO. ll2 Vital Signs: 05/13 20:43 BP 130 / 64; Pulse 101; Resp 18 S; Temp 100.4(O); Pulse Ox 98% on R/A; Weight 40.82 kg ca1 (R); Height 5 ft. 0 in. (152.40 cm) (R); Pain 2/10; 21:30 BP 121 / 59; Pulse 80; Resp 18; Pulse Ox 97% on R/A; ll2 22:30 BP 119 / 58; Pulse 84; Resp 20; Pulse Ox 98% on R/A; ll2 23:44 BP 117 / 71; Pulse 87; Resp 20; Pulse Ox 99% on R/A; ll2 05/14 00:45 BP 120 / 85; Pulse 87; Resp 18; Pulse Ox 100% on R/A; ll2 01:45 BP 102 / 52; Pulse 85; Resp 20; Pulse Ox 99% on R/A; ll2 02:45 BP 113 / 60; Pulse 78; Resp 16; Pulse Ox 97% on R/A; ll2 03:45 BP 111 / 61; Pulse 88; Resp 20; Pulse Ox 99% on R/A; ll2 05/13 20:43 Body Mass Index 17.58 (40.82 kg, 152.40 cm) ca1 ED Course: 05/13 20:34 Patient arrived in ED. bp1 20:45 Triage completed. ca1 20:46 Arm band placed on right wrist. ca1 21:36 Allan Corado MD is Attending Physician. mh7 21:40 Serina Stoner, FOZIA is Primary Nurse. ll2 22:10 Inserted saline lock: 20 gauge in right forearm, using aseptic technique. Blood ds4 collected. 22:20 Patient has correct armband on for positive identification. Placed in gown. Bed in low ll2 position. Call light in reach. Side rails up X 1. Pulse ox on. NIBP on. 22:20 No provider procedures requiring assistance completed. ll2 23:27 XRAY Chest (1 view) In Process Unspecified. EDMS 03/07 01:33 CT Chest For PE Angio In Process Unspecified. EDMS 02:48 Urine Culture Sent. ll2 02:48 Procalcitonin Sent. ll2 02:48 Lactate Sent. ll2 03:25 Catherine, Fede, MD is Hospitalizing Provider. [facility] 04:36 Patient admitted, IV remains in place. ll2 Administered Medications: 05/13 21:18 Drug: Tylenol 650 mg Route: PO; ca1 03 03:37 Drug: Rocephin - (cefTRIAXone) 1 grams Route: IVPB; Infused Over: 30 mins; Site: right ll2 antecubital; 03:37 Drug: Aspirin Chewable Tablet 162 mg Route: PO; ll2 Outcome: 03:25 Decision to Hospitalize by Provider. [facility] 04:36 Admitted to Med/surg accompanied by tech, via wheelchair, Report called to FOZIA JOE ll2 04:36 Condition: stable 04:36 Instructed on the need for admit. 04:37 Patient left the ED. 2 Signatures: Dispatcher [employer] EDSincere Butler4 Shahrzad Coppola RN RN ca1 Serina Stoner RN RN ll2 Emilia Chun Maurice, MD MD [facility] Corrections: (The following items were deleted from the chart) 04:36 04:32 Reassessment: ATTEMPTED TO CALL REPORT, INSTRUCTED I'D BE CALLED BACK BY KATHY lopez RN 2
[2020-05-14] MEDS ORDERED: ONDANSETRON 4 MG/2 ML VIAL IV PRN (03:28)
[2020-05-14] MEDS ORDERED: ACETAMINOPHEN 325 MG TABLET PO PRN (03:28)
[2020-05-14] MEDS ORDERED: MORPHINE 4 MG/ML SYR IV PRN (03:28)
[2020-05-14] MEDS ORDERED: CEFTRIAXONE/SWI 1gm 1 GM/10 ML SYR ONE (03:58)
[2020-05-14] MEDS ORDERED: ASPIRIN 81 MG CHEWABLE TABLET ONE (03:58)
[2020-05-14 06:04] VITALS: BMI 18.5
[2020-05-14] MEDS: GABAPENTIN 300 MG CAP PO SCH ×2 (09:48→20:40)
[2020-05-14] MEDS: ASPIRIN EC 81 MG TAB PO SCH (09:49)
[2020-05-14 09:57] LABS: Urine Appearance CLEAR; Urine Bilirubin NEGATIVE (NEG); Urine Blood NEGATIVE (NEG); Urine Color YELLOW; Urine Glucose NEGATIVE (NEG); Urine Protein NEGATIVE (NEG); Urine Specific Gravity >=1.030 (1.005-1.030); Urine Urobilinogen 0.2 mg/dL (0.2-1.0)
[2020-05-14 10:10] LABS: Urine Microscopic Reflex NO UMIC
[2020-05-14] MEDS ORDERED: MORPHINE 2 MG/ML SYR IV PRN (11:00)
[2020-05-14] MEDS ORDERED: AZITHROMYCIN 250 MG TAB PO ONE (11:00)
--- NOTE | 2020-05-14 12:05 | P.HP ---
Certification for Inpatient Patient admitted to: Observation With expected LOS: <2 Midnights Practitioner: I am a practitioner with admitting privileges, knowledge of patient current condition, hospital course, and medical plan of care. Services: Services provided to patient in accordance with Admission requirements found in Title 42 Section 412.3 of the Code of Federal Regulations Patient History Date of Service: 05/14/20 Reason for admission: CHEST PAIN. History of Present Illness: SHAYY IS IN EXTENSIVE STRESS FROM 7 FAMILY MEMBERS LIVING IN HER HOME. SHE COMES WITH PLEURITIC CHEST PAIN AND FEVER. SHE IS COVID NEGATIVE. THIS HAPPENED IN LAST 12 HOURS. Allergies Erythromycin Allergy (Uncoded 05/14/20 04:55) Hives Home medications list reviewed: Yes Home Medications: Gabapentin 1 cap PO BID 05/14/20 Ibandronate Sodium 150 mg PO SEECOM 05/14/20 Simvastatin 20 mg PO BEDTIME 05/14/20 - Past Medical/Surgical History Has patient received pneumonia vaccine in the past: No Diabetic: No -: High cholesterol -: Decreased bone density -: Pleurisy -: Gall bladder removed - Family History Mother -: Diabetes, Other (see notes) Notes: Alzheimer's Brother -: Diabetes Father -: Other (see notes) Notes: Multiple sclerosis - Social History Smoking Status: Never smoker Alcohol use: Yes CD- Drugs: No Caffeine use: Yes Place of Residence: Home Review of Systems 10-point ROS is otherwise unremarkable Physical Examination - Vital Signs Temperature: 97.4 F Blood Pressure: 112/61 Pulse: 87 Respirations: 20 Pulse Ox (%): 99 - Physical Exam General: Alert, In no apparent distress HEENT: Atraumatic, PERRLA, Mucous membr. moist/pink, EOMI, Sclerae nonicteric Neck: Supple, 2+ carotid pulse no bruit, No LAD, Without JVD or thyroid abnormality Respiratory: Clear to auscultation bilaterally, Normal air movement Cardiovascular: Regular rate/rhythm, Normal S1 S2 Gastrointestinal: Normal bowel sounds, No tenderness Musculoskeletal: No tenderness Integumentary: No rashes Neurological: Normal gait, Normal speech, Normal strength at 5/5 x4 extr, Normal tone, Normal affect Lymphatics: No axilla or inguinal lymphadenopathy - Studies Laboratory Data (last 24 hrs) 05/13/20 21:55: PT 13.0 H, INR 1.13 05/13/20 21:55: WBC 12.20 H, Hgb 10.6 L, Hct 30.5 L, Plt Count 318 05/13/20 21:55: Sodium 139, Potassium 3.8, BUN 19 H, Creatinine 0.52 L, Glucose 103, Magnesium 1.9, Total Bilirubin 0.2, AST 21, ALT 21, Alkaline Phosphatase 70 Assessment and Plan - Problems (Diagnosis) (1) Infection of chest Current Visit: Yes Status: Acute Plan: PAIN IS ATYPICAL START ZITHROMAX SHE IS ALLERGIC BUT MAINLY INTOLERANT TO EM WILL FU. (2) Pleurisy Current Visit: Yes Status: Acute Plan: ABOVE. THE PAIN IS NOT CARDIAC IN ORIGIN. STILL WILL SEE ANIMAL PHYSIOLOGY TEACHER. - Advance Directives Does patient have a Living Will: No Does patient have a Durable POA for Healthcare: No
--- NOTE | 2020-05-14 13:40 | RAD REPORT ---
EXAM DESCRIPTION: RAD - Chest Single View - 05/13/2020 10:13 pm CLINICAL HISTORY: CHEST PAIN Chest pain. COMPARISON: No comparisons FINDINGS: Portable technique limits examination quality. The lungs are grossly clear. The heart is normal in size. No displaced fractures. IMPRESSION: No acute intrathoracic process suspected.
[2020-05-14] MEDS ORDERED: SIMVASTATIN 20 MG PO SCH (21:00)
[2020-05-15 05:57] LABS: Absolute Lymphocytes (CBC) 2.2 K/uL (0.7-4.9); Basophils % 0.6 % (0-1.3); Hematocrit 34.8 % (36.0-45.0); Lymphocytes % 19.7 % (15.3-44.8); MPV 7.8 fL (7.6-11.3); RBC Red Blood Cell Count 3.74 M/uL (3.86-4.86)
[2020-05-15 06:05] LABS: BUN Blood Urea Nitrogen 13 mg/dL (7-18); Bicarbonate 28 mmol/L (21-32); Glucose Level 88 mg/dL (74-106); Potassium 4.3 mmol/L (3.5-5.1); Sodium Level 142 mmol/L (136-145)
[2020-05-15] MEDS: GABAPENTIN 300 MG CAP PO SCH (08:35)
[2020-05-15] MEDS: ASPIRIN EC 81 MG TAB PO SCH (08:36)
[2020-05-15] MEDS ORDERED: AZITHROMYCIN 250 MG TAB PO SCH (09:00)
[2020-05-15 09:33] VITALS: O2SAT 96
[2020-05-15 09:47] VITALS: BP 115/56; TEMP 97.1
--- NOTE | 2020-05-15 17:17 | RAD REPORT ---
EXAM DESCRIPTION: Chest For Pe Angio CLINICAL HISTORY: Chest pain;Fever COMPARISON: None Available. TECHNIQUE: CTA of the chest obtained following the uncomplicated intravenous administration of iodin ated contrast. 3-D/MIP reformatted images of the chest available for evaluation. This exam was perfor med according to our departmental dose-optimization program, which includes automated exposure contro l, adjustment of the mA and/or kV according to patient size and/or use of iterative reconstruction te [place]. FINDINGS: Chest: Pulmonary arteries: Contrast bolus is adequate.No filling defects identified in the pulmonary arterie s to suggest pulmonary embolus. Thyroid: No abnormalities of the visualized thyroid. Great Vessels: Great vessels have normal anatomic configuration. Thoracic Aorta: No abnormalities of the thoracic aorta identified. Heart: No cardiomegaly, significant pericardial effusion, or coronary artery atherosclerosis Lymph Nodes: No enlarged mediastinal lymph nodes identified. Esophagus: Small hiatal hernia. Other: No additional findings. Lungs: No airspace opacities identified. The most inferior aspect of the lungs are not visualized on this study. Pleura: No pleural effusion or pneumothorax. Trachea/Airways: No abnormalities of the visualized trachea or airways. Bones: No destructive osseous lesions. Upper Abdomen: Limited images of the upper abdomen demonstrate no definite abnormalities of visualize d portions of the liver and spleen. IMPRESSION: 1. No pulmonary embolus identified. 2. Small hiatal hernia. Electronically signed by: Nikolai Castillo 05/14/2020 1:44 AM SCHEDULING AGENT Due to temporary technical issues with the PACS/Fluency reporting system, reports are being signed by the in house radiologists without review as a courtesy to insure prompt reporting. The interpreting radiologist is fully responsible for the content of the report.
--- NOTE | 2020-05-15 21:19 | P.DS ---
Admission Date: 05/14/20 Discharge Date: 05/15/20 Disposition: ROUTINE DISCHARGE Discharge Condition: FAIR Reason for Admission: CHEST PAIN. - Problems (1) Infection of chest Status: Acute (2) Pleurisy Status: Acute Brief History of Present Illness: SHAYY IS IN EXTENSIVE STRESS FROM 7 FAMILY MEMBERS LIVING IN HER HOME. SHE COMES WITH PLEURITIC CHEST PAIN AND FEVER. SHE IS COVID NEGATIVE. THIS HAPPENED IN LAST 12 HOURS. Hospital Course: SHAYY IS FEELING GREAT TODAY. SHE HAS NO SYMPTOMS. SHE HAS ONE OUR OF FOUR CULTURES POSITIVE AND MOST LIKELY CONTAMINANT. SHE IS STABLE FOR DISCHRGE AND VERY EAGER TO GO HOME. Vital Signs/Physical Exam: Temp Pulse Resp BP Pulse Ox 97.1 F 91 H 16 115/56 L 99 05/15/20 08:00 05/15/20 08:00 05/15/20 08:00 05/15/20 08:00 05/15/20 08:00 Laboratory Data at Discharge: WBC 11.40 K/uL (4.3-10.9) H 05/15/20 05:30 Hgb 11.6 g/dL (12.0-15.0) L 05/15/20 05:30 Hct 34.8 % (36.0-45.0) L 05/15/20 05:30 Plt Count 358 K/uL (152-406) 05/15/20 05:30 PT 13.0 SECONDS (9.5-12.5) H 05/13/20 21:55 INR 1.13 05/13/20 21:55 Sodium 142 mmol/L (136-145) 05/15/20 05:30 Potassium 4.3 mmol/L (3.5-5.1) 05/15/20 05:30 BUN 13 mg/dL (7-18) 05/15/20 05:30 Creatinine 0.59 mg/dL (0.55-1.3) 05/15/20 05:30 Glucose 88 mg/dL (74-106) 05/15/20 05:30 Magnesium 1.9 mg/dL (1.8-2.4) 05/13/20 21:55 Total Bilirubin 0.2 mg/dL (0.2-1.0) 05/13/20 21:55 AST 21 U/L (15-37) 05/13/20 21:55 ALT 21 U/L (12-78) 05/13/20 21:55 Alkaline Phosphatase 70 U/L (45-117) 05/13/20 21:55 Troponin I < 0.02 ng/mL (0.0-0.045) 05/14/20 10:20 Home Medications: Gabapentin 1 cap PO BID 05/14/20 Ibandronate Sodium 150 mg PO SEECOM 05/14/20 Simvastatin 20 mg PO BEDTIME 05/14/20 Azithromycin Tab [Zithromax*] 250 mg PO ZPAK #1 osmel 05/15/20 New Medications: Azithromycin Tab [Zithromax*] 250 mg PO ZPAK #1 osmel Followup: Fede Alexadner MD [ACTIVE - CAN ADMIT] - Unknown,U [Primary Care Provider] -
== END 2020-05-15 09:11 | disposition home or self-care (01) ==
LOC: ER 20:24 → ERHOLD 05-14 03:27 → 2ND 05-14 04:33
PROVIDERS: ADMIT Internal Medicine; ATTEND Internal Medicine
DX: R09.1 Pleurisy (principal); R50.9 Fever, unspecified; Z20.822 Contact with and (suspected) exposure to COVID-19; E78.00 Pure hypercholesterolemia, unspecified
CPT/HCPCS: 93005; 87040 ×2; 87088; 85025 ×2; 87086; 80048 ×2; 36415 ×2; 83735; 87205; 85610; 80076; 83605; 81003 ×2; 84484 ×3; 84145; 83880; 0240U; 71275; 71045; 96374; 99285; Q9967; J0696; G0378 ×3

== ENCOUNTER 2021-12-26 09:10 | Emergency (ER) | payer OTHER ==
--- OUTSIDE RECORDS SUMMARY | 2021-12-26 09:13 | XMS REPORT | Continuity of Care Document ---
:1945 Author Organization [facility] t Address [address] [place] [address] Care Team Providers Name Role Phone Fede Alexander MD Primary Care Physician FEDE ALEXANDER Attending Clinician Unavailable Problems This patient has no known problems. Allergies, Adverse Reactions, Alerts This patient has no known allergies or adverse reactions. Social History Social Habit Start Date Stop Date Quantity Comments Source Sex Assigned At [birth year] [facility] 00:00:00 00:00:00 Smoking Status Start Date Stop Date Source Tobacco smoking consumption unknown [facility] Medications This patient has no known medications. Procedures This patient has no known procedures. Plan of Care Planned Activity Planned Date Details Comments Source Future Scheduled 2021-11-10 COVID-19 VACCINE (#1) [facility] Test 17:58:06 [code = COVID-19 VACCINE (#1)] Future Scheduled 2021-11-10 Hepatitis C screening [facility] Test 17:58:06 (procedure) [code = 930202333] Future Scheduled 2021-11-10 BREAST CANCER [facility] Test 17:58:06 SCREENING [code = BREAST CANCER SCREENING] Future Scheduled 2021-11-10 COLONOSCOPY SCREENING [facility] Test 17:58:06 [code = COLONOSCOPY SCREENING] Future Scheduled 2021-11-10 SHINGLES VACCINES (1 [facility] Test 17:58:06 of 2) [code = SHINGLES VACCINES (1 of 2)] Future Scheduled 2021-11-10 65+ PNEUMOCOCCAL [facility] Test 17:58:06 VACCINE (1 - PCV) [code = 65+ PNEUMOCOCCAL VACCINE (1 - PCV)] Future Scheduled 2021-11-10 INFLUENZA VACCINE [facility] Test 17:58:06 [code = INFLUENZA VACCINE] Future Scheduled 2021-11-10 HEPATITIS B VACCINES [facility] Test 17:58:06 (1 of 3 - 3-dose series) [code = HEPATITIS B VACCINES (1 of 3 - 3-dose series)] Encounters Start End Encounter Admission Attending Care Care Encounter Source Date/Time Date/Time Type Type Clinicians Facility Department ID 2020-06-23 2020-06-23 Outpatient [facility] [id number] 00:00:00 00:00:00 FEDE [address] 2020-06-23 2020-06-23 Outpatient [facility] [id number] 00:00:00 00:00:[address] FEDE [address] Results This patient has no known results.
--- NOTE | 2021-12-26 09:59 | RAD REPORT ---
EXAM DESCRIPTION: CT - Head Brain Wo Cont - 12/26/2021 9:49 am CLINICAL HISTORY: Headache, head injury, fall with blunt force trauma to the back of the head COMPARISON: Brain Wo Cont dated 11/08/2015 TECHNIQUE: Axial 5 mm thick images of the head were obtained without IV contrast. All CT scans are performed using dose optimization technique as appropriate and may include automated exposure control or mA/KV adjustment according to patient size. FINDINGS: No intracranial hemorrhage, mass, edema or shift of mid-line structures. No acute cortical based infarction. No cortical edema or sulcal effacement. Patient's atrophy and cerebral white matte r chronic ischemic pattern is similar or only fractionally progressive from a 2016 MRI comparison. No abnormal extra-axial fluid collections. Arterial tree calcifications are present. Mastoid air cells and visualized portions of the paranasal sinuses are clear. Patient has a small left parietal scalp hematoma with underlying bone intact. IMPRESSION: No hemorrhage, edema or acute intracranial finding identifiable. Mild atrophy and chroni c ischemic pattern similar or only fractionally progressive from 2016. Small left parietal scalp hematoma with underlying bone intact.
--- NOTE | 2021-12-26 10:31 | ER ---
Nurse's Notes [facility] Name: Shahrzad Roque Age: 76 yrs Sex: Female : 1945 Arrival Date: 12/26/2021 Time: 09:11 Bed 4 Private MD: Fede Alexander V Diagnosis: Fall on same level, unspecified;Contusion of unspecified part of head Presentation: 12/26 09:20 Chief complaint: Patient states: she fell this morning and hit the back of her head on mb9 a cabinet. Pt states there was no LOC and does not take any blood thinners. 09:20 Coronavirus screen: Vaccine status: Patient reports receiving the 2nd dose of the covid mb9 vaccine. Ebola Screen: No symptoms or risks identified at this time. Mechanism of Injury: resulted from a fall. Initial Sepsis Screen: Does the patient meet any 2 criteria? No. Patient's initial sepsis screen is negative. Does the patient have a suspected source of infection? No. Patient's initial sepsis screen is negative. Risk Assessment: Do you want to hurt yourself or someone else? Patient reports no desire to harm self or others. 09:20 Method Of Arrival: Ambulatory 9 09:20 Acuity: KELLIE 3 9 09:20 Onset of symptoms was December 26, 2021. 9 Triage Assessment: 09:20 General: Appears in no apparent distress. comfortable, Behavior is calm, cooperative, mb9 appropriate for age. Pain: Complains of pain in back of head Pain currently is 0 out of 10 on a pain scale. Quality of pain is described as stinging, Pain began suddenly. EENT: No signs and/or symptoms were reported regarding the EENT system. Neuro: Level of Consciousness is awake, alert, obeys commands, Oriented to person, place, time, situation, Appropriate for age Supervisor Slate Splitting are equal bilaterally Moves all extremities. Gait is steady, Speech is normal, Pupils are PERRLA, Denies weakness blurred vision dizziness, headache. Cardiovascular: Heart tones S1 S2 present. Respiratory: Airway is patent Respiratory effort is even, unlabored, Respiratory pattern is regular, symmetrical, Breath sounds are clear bilaterally. GI: Abdomen is flat. : No signs and/or symptoms were reported regarding the genitourinary system. Derm: Skin is pink, warm \T\ dry. raised bump on back of head that is red. Musculoskeletal: Range of motion: intact in all extremities. 10:37 Neuro: Reports. mb9 Historical: - Allergies: 09:29 Erythromycin; mb9 - Home Meds: 09:29 gabapentin Oral [Active]; atorvastatin 20 mg oral tab [Active]; naltrexone oral mb9 [Active]; - PMHx: 09:29 High Cholesterol; mb9 - PSHx: 09:39 Cholecystectomy; mb9 - Immunization history:: Client reports receiving the 2nd dose of the Covid vaccine. - Social history:: Smoking status: Patient denies any tobacco usage or history of. Patient uses alcohol, only on a social basis. Screenin:39 Abuse screen: Denies threats or abuse. Nutritional screening: No deficits noted. mb9 Tuberculosis screening: No symptoms or risk factors identified. Fall Risk None identified. Assessment: 09:36 General: Appears in no apparent distress. comfortable, Behavior is calm, cooperative, mb9 appropriate for age. Pain: Complains of pain in back of head Pain currently is 0 out of 10 on a pain scale. Quality of pain is described as stinging. Neuro: Level of Consciousness is awake, alert, obeys commands, Oriented to person, place, time, situation, Appropriate for age Supervisor Slate Splitting are equal bilaterally Moves all extremities. Speech is normal, Pupils are PERRLA, Denies weakness blurred vision headache. Cardiovascular: Heart tones S1 S2 present. Respiratory: Airway is patent Respiratory effort is even, unlabored, Respiratory pattern is regular, symmetrical, Breath sounds are clear bilaterally. GI: Abdomen is flat. : No signs and/or symptoms were reported regarding the genitourinary system. EENT: No signs and/or symptoms were reported regarding the EENT system. Derm: Skin is raised bump on back of head that is red. Musculoskeletal: Range of motion: intact in all extremities. 10:13 General: Appears in no apparent distress. comfortable, Behavior is calm, cooperative, mb9 appropriate for age. Pain: Complains of pain in back of head Quality of pain is described as stinging. Neuro: Level of Consciousness is awake, alert, obeys commands, Oriented to person, place, time, situation, Appropriate for age Supervisor Slate Splitting are equal bilaterally Moves all extremities. Speech is normal. Cardiovascular: Heart tones S1 S2 present. Respiratory: Airway is patent Respiratory effort is even, unlabored, Respiratory pattern is regular, symmetrical. Derm: Skin is pink, warm \T\ dry. Vital Signs: 09:31 BP 133 / 68; Pulse 90; Resp 16; Temp 97.1; Pulse Ox 100% on R/A; Weight 43.09 kg; mb9 Height 5 ft. 0 in. (152.40 cm); Pain 0/10; 10:14 BP 114 / 61; Pulse 85; Resp 16; Pulse Ox 100% on R/A; Pain 0/10; mb9 09:31 Body Mass Index 18.55 (43.09 kg, 152.40 cm) mb9 [employer] Coma Score: 09:20 Eye Response: spontaneous(4). Verbal Response: oriented(5). Motor Response: obeys mb9 commands(6). Total: 15. 09:32 Eye Response: spontaneous(4). Verbal Response: oriented(5). Motor Response: obeys pm1 commands(6). Total: 15. ED Course: 09:11 Patient arrived in ED. am2 09:12 Fede Alexander MD is Private Physician. am2 09:15 Sandeep Marin NP is [facility]. pm1 09:15 Gallito Tucker MD is Attending Physician. pm1 09:15 Arm band placed on. mb9 09:15 Patient has correct armband on for positive identification. Placed in gown. Bed in low mb9 position. Call light in reach. Side rails up X 1. 09:27 Rufina Ramirez, RN is Primary Nurse. mb9 09:29 Triage completed. mb9 09:39 No provider procedures requiring assistance completed. mb9 09:50 Head Brain Wo Cont In Process Unspecified. EDMS 10:38 Patient did not have IV access during this emergency room visit. mb9 Administered Medications: No medications were administered Medication: 09:40 VIS not applicable for this client. mb9 Outcome: 10:31 Discharge ordered by . pm1 10:37 Discharged to home ambulatory. mb9 10:37 Condition: stable 10:37 Discharge instructions given to patient, Instructed on discharge instructions, follow up and referral plans. Demonstrated understanding of instructions, follow-up care. 10:38 Patient left the ED. mb9 Signatures: Dispatcher [employer] EDMS Sandeep Marin NP [employer] pm1 Sol Jauregui am2 Rufina Ramirez, RN RN mb9
--- NOTE | 2021-12-26 10:31 | EDPHYS ---
Physician Documentation [facility] Name: Shahrzad Roque Age: 76 yrs Sex: Female : 1945 Arrival Date: 12/26/2021 Time: 09:11 Bed 4 Private MD: Fede Alexander V ED Physician Gallito Tucker HPI: 12/26 09:32 This 76 yrs old Female presents to ER via Ambulatory with complaints of Head pm1 Injury-Adult, Fall Injury. 09:32 The patient or guardian reports pain, swelling, tenderness. The complaints affect the pm1 occipital area. Context of injury: The problem was sustained at home, resulted from tripped and hit the back of her head against the cabinet. Onset: The symptoms/episode began/occurred this morning. Associated signs and symptoms: Loss of consciousness: This patient did not experience any loss of consciousness. Pertinent negatives: nausea, vomiting, acute neck pain. Patient takes pain medications for chronic neck pain. Severity of symptoms: in the emergency department the symptoms are unchanged. The patient has not experienced similar symptoms in the past. The patient has not recently seen a physician. Patient was preparing the food for her cat and she tripped while turning around and fell backwards hitting her head against her cabinet. Negative for LOC. Negative for blood thinners. Historical: - Allergies: 09:29 Erythromycin; mb9 - Home Meds: 09:29 gabapentin Oral [Active]; atorvastatin 20 mg oral tab [Active]; naltrexone oral mb9 [Active]; - PMHx: 09:29 High Cholesterol; mb9 - PSHx: 09:39 Cholecystectomy; mb9 - Immunization history:: Client reports receiving the 2nd dose of the Covid vaccine. - Social history:: Smoking status: Patient denies any tobacco usage or history of. Patient uses alcohol, only on a social basis. ROS: 09:32 Constitutional: Negative for fever, chills, and weight loss, Neck: Negative for injury, pm1 pain, and swelling, Cardiovascular: Negative for chest pain, palpitations, and edema, Respiratory: Negative for shortness of breath, cough, wheezing, and pleuritic chest pain, Abdomen/GI: Negative for abdominal pain, nausea, vomiting, diarrhea, and constipation, Back: Negative for injury and pain, MS/Extremity: Negative for injury and deformity, Skin: Negative for injury, rash, and discoloration. 09:32 Neuro: Positive for headache, of the occipital area, Negative for loss of consciousness, numbness, tingling, weakness. 09:32 All other systems are negative. Exam: 09:32 Constitutional: This is a well developed, well nourished patient who is awake, alert, pm1 and in no acute distress. 09:32 Back: No spinal tenderness. No costovertebral tenderness. Full range of motion. Skin: Warm, dry with normal turgor. Normal color with no rashes, no lesions, and no evidence of cellulitis. MS/ Extremity: Pulses equal, no cyanosis. Neurovascular intact. Full, normal range of motion. 09:32 Head/face: Noted is no obvious of injury or deformity except swelling, that is moderate, of the occipital area, tenderness, that is mild, of the occipital area. 09:32 Eyes: Periorbital structures: no acute changes, Extraocular movements: no acute changes, Conjunctiva: no acute changes, no injection. 09:32 ENT: Exam is negative for acute changes, Mouth: no acute changes, Lips: normal, moist, Oral mucosa: normal, pink and intact, moist. 09:32 Neck: C-spine: vertebral tenderness, is not appreciated, ROM/movement: is normal. 09:32 Cardiovascular: Exam negative for acute changes, Rate: normal, Rhythm: regular, Pulses: no pulse deficits are appreciated. 09:32 Respiratory: Exam negative for acute changes, respiratory distress, shortness of breath. 09:32 Abdomen/GI: Inspection: abdomen appears normal, Palpation: abdomen is soft and non-tender, in all quadrants. 09:32 Neuro: Exam negative for acute changes, Orientation: is normal, Mentation: is normal, Motor: is normal, moves all fours. Vital Signs: 09:31 BP 133 / 68; Pulse 90; Resp 16; Temp 97.1; Pulse Ox 100% on R/A; Weight 43.09 kg; mb9 Height 5 ft. 0 in. (152.40 cm); Pain 0/10; 10:14 BP 114 / 61; Pulse 85; Resp 16; Pulse Ox 100% on R/A; Pain 0/10; mb9 09:31 Body Mass Index 18.55 (43.09 kg, 152.40 cm) mb9 [employer] Coma Score: 09:20 Eye Response: spontaneous(4). Verbal Response: oriented(5). Motor Response: obeys mb9 commands(6). Total: 15. 09:32 Eye Response: spontaneous(4). Verbal Response: oriented(5). Motor Response: obeys pm1 commands(6). Total: 15. MDM: 09:16 Patient medically screened. pm1 10:06 Data reviewed: vital signs. Data interpreted: Pulse oximetry: on room air is 100 %. pm1 Interpretation: normal. 10:30 Counseling: I had a detailed discussion with the patient and/or guardian regarding: the pm1 historical points, exam findings, and any diagnostic results supporting the discharge/admit diagnosis, radiology results, the need for outpatient follow up, to return to the emergency department if symptoms worsen or persist or if there are any questions or concerns that arise at home. 12/26 09:28 Order name: CT Head Brain wo Cont pm1 12/26 09:32 Order name: Head Brain Wo Cont; Complete Time: 10:29 EDMS Administered Medications: No medications were administered Disposition Summary: 12/26/21 10:31 Discharge Ordered Location: Home pm1 Problem: new pm1 Symptoms: have improved pm1 Condition: Stable pm1 Diagnosis - Fall on same level, unspecified pm1 - Contusion of unspecified part of head pm1 Followup: pm1 - With: Emergency Department - When: As needed - Reason: Worsening of condition Followup: pm1 - With: Private Physician - When: 2 - 3 days - Reason: Recheck today's complaints, Continuance of care, Re-evaluation by your physician Discharge Instructions: - Discharge Summary Sheet pm1 - Head Injury, Adult pm1 - Fall Prevention in the Home, Adult pm1 Forms: - Medication Reconciliation Form pm1 - Thank You Letter pm1 - Work release form ss - Antibiotic Education pm1 - Prescription Opioid Use pm1 Signatures: Dispatcher [employer] EDSandeep Boland NP LINE CLOSER pm1 Rufina Ramirez RN RN mb9
[2021-12-26 10:44] VITALS: TEMP 97.1; O2SAT 100
[2021-12-26 10:45] VITALS: BP 114/61
== END 2021-12-26 10:38 | disposition home or self-care (01) ==
LOC: ER 09:10
DX: S00.83XA Contusion of other part of head, initial encounter (principal); W18.30XA Fall on same level, unspecified, initial encounter; E78.00 Pure hypercholesterolemia, unspecified; Z88.3 Allergy status to other anti-infective agents
CPT/HCPCS: 70450; 99283